=== PATIENT | female | born 1960 | race Caucasian/White ===

== ENCOUNTER 2018-11-13 19:02 | Emergency (ER) | payer OTHER ==
[~2018-11-13] VITALS: Ht 160 cm; Wt 61.2 kg
[~2018-11-13 19:02] MED LIST: AVONEX PEN30 MCG/0.1 IM; JANUMET 50-1,1 UDTAB PO; LISINOPRIL2.5 MG; LIVALO1 MG PO; METFORMIN HYDRO25 GM; PROCARDIA90 MG/BLIS PO; PROTONIX20 MG; TRICOR145 MG PO
[2018-11-13] MEDS ORDERED: PLEGRIDY SQ (19:33)
== END 2018-11-14 01:01 | disposition home or self-care (01) ==
LOC: ER 19:02
DX: R51 Headache (principal); M54.2 Cervicalgia

== ENCOUNTER 2021-01-07 21:00 | Emergency (ER) | payer OTHER ==
[~2021-01-07] VITALS: Ht 162.6 cm; Wt 59.9 kg
[~2021-01-07 21:00] MED LIST changes: +PLEGRIDY SQ
[2021-01-07] MEDS ORDERED: GLIMEPIRIDE2 M1 PO (21:09)
== END 2021-01-08 01:05 | disposition home or self-care (01) ==
LOC: ER 21:00
DX: N39.0 Urinary tract infection, site not specified (principal); N20.0 Calculus of kidney

== ENCOUNTER 2021-01-28 07:13 | Outpatient (CLI) | payer OTHER ==
[~2021-01-28 07:13] MED LIST changes: +GLIMEPIRIDE2 M1 PO
== END 2021-01-28 07:27 | disposition home or self-care (01) ==
LOC: MRI 07:13
PROVIDERS: ATTEND Psychiatry & Neurology Clinical Neurophysiology
DX: G93.89 Other specified disorders of brain (principal)
CPT/HCPCS: 70552

== ENCOUNTER 2023-07-25 16:30 | Emergency (ER) | payer OTHER ==
[~2023-07-25] VITALS: Ht 157.5 cm; Wt 59.0 kg
[2023-07-25 18:21] LABS: HEMATOCRIT 39.9 % (36.0-45.00); HEMOGLOBIN 13.3 g/dL (12.0-15.00); MEAN CELL VOLUME 85.8 fL (80.00-100.00); MEAN CORPUSCULAR HEMOGLOBIN 28.7 pg (27.00-32.0); MEAN CORPUSCULAR HGB CONC 33.4 g/dl (32.0-36.0); PLATELET COUNT 207 K/uL (150-450); RED BLOOD COUNT 4.65 M/uL (4.00-6.00); RED CELL DISTRIBUTION WIDTH 13.9 % (11.5-14.5)
[2023-07-25 18:38] LABS: ALBUMIN 4.1 gm/dL (3.4-5.0); BILIRUBIN TOTAL 0.29 mg/dL (0.3-1.2); CALCIUM 9.6 mg/dL (8.5-10.1); CREATININE SERUM 0.59 mg/dL (0.55-1.02); GFR 102.62; GLOBULINA 3.6 G/DL (2.4-3.5); POTASSIUM 3.98 mEq/L (3.5-5.1); TOTAL PROTEIN 7.7 gm/dL (6.4-8.2)
== END 2023-07-25 23:50 | disposition home or self-care (01) ==
LOC: ER 16:31
PROVIDERS: Psychiatry & Neurology Clinical Neurophysiology
DX: S00.93XA Contusion of unspecified part of head, initial encounter (principal); W18.39XA Other fall on same level, initial encounter; Y93.89 Activity, other specified; Y92.018 Other place in single-family (private) house as the place of occurrence of the external cause; Y99.9 Unspecified external cause status; Z91.018 Allergy to other foods; E11.9 Type 2 diabetes mellitus without complications; I10 Essential (primary) hypertension; G35 Multiple sclerosis